=== PATIENT | female | born 1970 | race American Indian/Alaskan Native ===

== ENCOUNTER 2016-12-12 22:43 | Emergency (ER) | payer OTHER ==
[2016-12-12 23:21] VITALS: BP 152/93
== END 2016-12-12 23:30 | disposition left against medical advice (07) ==
LOC: ED 22:43
DX: R51 Headache (principal); Z53.21 Procedure and treatment not carried out due to patient leaving prior to being seen by health care provider

== ENCOUNTER 2017-02-03 10:41 | Outpatient (CLI) | payer OTHER ==
--- NOTE | 2017-02-09 11:03 | Vascular Lab Report ---
CAROTID DUPLEX STUDY: RIGHT PSVEDV CCA PROX:[id number] CCA DIST:[id number] ICA PROX:[id number] ICA MID: 8440 ICA DIST: 9046 ECA: 109 VERT: 53 19 LEFT PSVEDV CCA PROX:[id number] CCA DIST: 9334 ICA PROX:[id number] ICA MID: 5321 ICA DIST: 8138 ECA: 123 VERT: 55 21 REASON FOR EXAM: Possible TIA. COMMENTS ON THE RIGHT: Doppler frequency analysis is consistent with 16 to 49 percent diameter reduction of the internal carotid artery. Minimal amount of plaque is seen. The common carotid artery is patent. The external carotid artery is patent. The vertebral artery has antegrade flow. COMMENTS ON THE LEFT: Doppler frequency analysis is consistent with 16 to 49 percent diameter reduction of the internal carotid artery. Minimal amount of plaque is seen. The common carotid artery is patent. The external carotid artery is patent. The vertebral artery has antegrade flow. IMPRESSION: Less than 50% diameter reduction in the internal carotid arteries bilaterally. Consider repeat carotid artery duplex in 12 months.
== END 2017-02-03 10:42 | disposition home or self-care (01) ==
LOC: VAS 10:41
PROVIDERS: ATTEND Family Medicine
DX: I65.23 Occlusion and stenosis of bilateral carotid arteries (principal); R26.81 Unsteadiness on feet; R47.81 Slurred speech
CPT/HCPCS: 93880

== ENCOUNTER 2017-09-21 18:14 | Emergency (ER) | payer OTHER ==
[2017-09-21 18:43] VITALS: BP 104/82
[2017-09-21 19:32] LABS: Basophils % (Auto) 0.3 % (0.0-1.8); Eosinophils # (Auto) 0.1 K/mm3 (0.0-0.4); Eosinophils % (Auto) 0.9 % (0.0-4.3); Hematocrit 38.6 % (30.3-42.9); Lymphocytes # (Auto) 3.7 K/mm3 (1.2-5.4); Lymphocytes % (Auto) 33.3 % (13.4-35.0); Mean Corpuscular HGB Conc 34 % (30-34); Mean Corpuscular Hemoglobin 29 pg (28-32); Mean Corpuscular Volume 87 fl (79-97); Monocytes # (Auto) 0.6 K/mm3 (0.0-0.8); Monocytes % (Auto) 5.4 % (0.0-7.3); Platelet Count 223 K/mm3 (140-440); Red Blood Count 4.43 M/mm3 (3.65-5.03)
[2017-09-21 19:39] LABS: Alanine Aminotransferase 15 units/L (7-56); Albumin 4.1 g/dL (3.9-5); BUN/Creatinine Ratio 17; Blood Urea Nitrogen 10 mg/dL (7-17); Hemolysis Index 16; Lipase 29 units/L (13-60)
== END 2017-09-22 04:07 | disposition left against medical advice (07) ==
LOC: ED 18:14
DX: R11.2 Nausea with vomiting, unspecified (principal); R19.7 Diarrhea, unspecified; R07.9 Chest pain, unspecified; Z53.21 Procedure and treatment not carried out due to patient leaving prior to being seen by health care provider
CPT/HCPCS: 36415; 80053; 83690; 84484; 85025; 93005; 93010

== ENCOUNTER 2018-03-27 21:28 | Emergency (ER) | payer SELFPAY ==
[2018-03-27] MEDS ORDERED: NACL 0.9% 1000 ML 1,000 ML IV ONE (22:06)
[2018-03-27] MEDS ORDERED: ASPIRIN PO ONE (22:06)
[2018-03-27 22:31] LABS: Basophils % (Auto) 0.5 % (0.0-1.8); Eosinophils % (Auto) 0.4 % (0.0-4.3); Hematocrit 40.2 % (30.3-42.9); Hemoglobin 13.8 gm/dl (10.1-14.3); Lymphocytes # (Auto) 2.7 K/mm3 (1.2-5.4); Lymphocytes % (Auto) 33.7 % (13.4-35.0); Mean Corpuscular HGB Conc 34 % (30-34); Mean Corpuscular Hemoglobin 31 pg (28-32); Mean Corpuscular Volume 90 fl (79-97); Monocytes # (Auto) 0.6 K/mm3 (0.0-0.8); Monocytes % (Auto) 7.2 % (0.0-7.3); Platelet Count 254 K/mm3 (140-440); Red Blood Count 4.49 M/mm3 (3.65-5.03); Red Cell Distribution Width 13.2 % (13.2-15.2)
[2018-03-27 22:40] LABS: INR 0.98 (0.87-1.13)
[2018-03-27 22:41] LABS: Partial Thromboplastin Time 28.5 Sec. (24.2-36.6)
[2018-03-27 22:54] LABS: Alanine Aminotransferase 18 units/L (7-56); Albumin 3.9 g/dL (3.9-5); BUN/Creatinine Ratio 11; Blood Urea Nitrogen 8 mg/dL (7-17); Hemolysis Index 4; Lipase 30 units/L (13-60)
[2018-03-28] MEDS ORDERED: ASPIRIN ONE (00:11)
[2018-03-28] MEDS ORDERED: K-DUR PO ONE (00:47)
--- NOTE | 2018-03-28 01:36 | Emergency Department Report ---
ED Chest Pain HPI - General Chief Complaint: Chest Pain Stated Complaint: CHEST PAIN,HEADACHE,BLOOD IN STOOL Time Seen by Provider: 03/28/18 00:46 Source: patient Mode of arrival: Ambulatory Limitations: No Limitations - History of Present Illness Initial Comments: Earlier today, patient had one episode of dark red blood in her stool and when she wiped. Concerned her. So, she came to the ER for evaluation. On the way to the ER, patient developed left-sided chest pain that was nonradiating, intermittent, pleuritic, and nonexertional. Patient does not normally have chest pain. She smokes half a pack per day. Denies alcohol and drug use. No family history of ACS. Not on control. No recent trips/surgeries/ history of malignancy. -: Gradual - Related Data Home Medications Medication Instructions Recorded Confirmed Last Taken Hydrochlorothiazide 12.5 mg PO DAILY 09/27/14 08/01/16 09/27/14 Previous Rx's Medication Instructions Recorded Last Taken Type traMADol [Ultram] 50 mg PO Q6HR PRN #20 tablet 08/01/16 Unknown Rx Allergies Allergy/AdvReac Type Severity Reaction Status Date / Time lisinopril Allergy Angioedema Verified 02/12/14 07:44 Heart Score - HEART Score History: Slightly suspicious EKG: Normal Age: 45-65 Risk factors: 1-2 risk factors Troponin: < normal limit HEART Score: 2 ED Review of Systems ROS: Stated complaint: CHEST PAIN,HEADACHE,BLOOD IN STOOL Other details as noted in HPI Comment: All other systems reviewed and negative Cardiovascular: chest pain Gastrointestinal: hematochezia ED Past Medical Hx - Past Medical History Previous Medical History?: Yes Hx Hypertension: Yes Hx Congestive Heart Failure: No Hx Diabetes: No Hx Arthritis: Yes Hx Headaches / Migraines: Yes Hx Kidney Stones: Yes Hx Asthma: No Hx COPD: No Hx HIV: No Additional medical history: hyperthyroid - Surgical History Past Surgical History?: Yes Hx Cholecystectomy: Yes Additional Surgical History: tubal ligation 1993, eye surgery 1975, - Social History Smoking Status: Current Every Day Smoker Substance Use Type: None - Medications Home Medications: Home Medications Medication Instructions Recorded Confirmed Last Taken Type Hydrochlorothiazide 12.5 mg PO DAILY 09/27/14 08/01/16 09/27/14 History traMADol [Ultram] 50 mg PO Q6HR PRN #20 tablet 08/01/16 Unknown Rx ED Physical Exam - General Limitations: No Limitations General appearance: alert, in no apparent distress - Head Head exam: Present: atraumatic, normocephalic - Eye Eye exam: Present: normal appearance - ENT ENT exam: Present: mucous membranes moist - Neck Neck exam: Present: normal inspection - Respiratory Respiratory exam: Present: normal lung sounds bilaterally. Absent: respiratory distress - Cardiovascular Cardiovascular Exam: Present: regular rate, normal rhythm. Absent: systolic murmur, diastolic murmur, rubs, gallop - GI/Abdominal GI/Abdominal exam: Present: soft, normal bowel sounds. Absent: tenderness - Rectal Rectal exam: Present: normal inspection, heme (-) stool. Absent: hemorrhoids - Extremities Exam Extremities exam: Present: normal inspection - Back Exam Back exam: Present: normal inspection - Neurological Exam Neurological exam: Present: alert, oriented X3 - Psychiatric Psychiatric exam: Present: normal affect, normal mood - Skin Skin exam: Present: warm, dry, intact, normal color. Absent: rash ED Course Vital Signs 03/27/18 03/27/18 03/28/18 21:38 22:00 00:32 Temperature 98.3 F 98.3 F Pulse Rate 96 H 98 H Respiratory 18 18 Rate Blood Pressure 123/77 123/77 O2 Sat by Pulse 99 99 100 Oximetry 03/28/18 03/28/18 03/28/18 00:45 01:00 01:15 Temperature Pulse Rate 86 86 90 Respiratory 25 H 19 28 H Rate Blood Pressure 113/72 116/75 116/75 O2 Sat by Pulse 99 97 100 Oximetry 03/28/18 03/28/18 01:30 01:45 Temperature Pulse Rate 88 90 Respiratory 25 H 18 Rate Blood Pressure 131/74 131/74 O2 Sat by Pulse 100 99 Oximetry ED Medical Decision Making - Lab Data Result diagrams: 03/27/18 22:08 03/27/18 22:08 - EKG Data -: EKG Interpreted by [facility] EKG shows normal: sinus rhythm, axis, intervals, QRS complexes, ST-T waves Rate: normal - EKG Data Interpretation: no acute changes - Radiology Data Radiology results: image reviewed - Medical Decision Making 47-year-old female with past medical history of hypertension on hydrochlorothiazide presents to the ER with concerns for hematochezia and chest pain. Vital signs are stable. Patient is well-appearing. Patient had heme- negative stool on exam. External rectal exam was unremarkable. Likely hematochezia is due to internal hemorrhoids versus mucosal tear. I will start the patient on stool softeners for management. Hemoglobin is stable. Patient also endorsing chest pain. Low risk by heart score. EKG is unremarkable. Initial troponin is negative. Chest pain is improving without intervention. Patient is perc negative. If her delta troponin is negative, I have recommended to the patient that she follow-up with her family doctor for possible cardiac stress testing. The patient is comfortable with this plan. - Differential Diagnosis ACS, PE, pneumonia, pneumothorax, AAA, dissection, hemorrhoids Critical care attestation.: If time is entered above; I have spent that time in minutes in the direct care of this critically ill patient, excluding procedure time. ED Disposition Clinical Impression: Hematochezia, Chest pain, Hypokalemia Disposition: DC-01 TO HOME OR SELFCARE Is pt being admited?: No Does the pt Need Aspirin: No Condition: Stable Instructions: Chest Pain (ED), Rectal Bleeding (ED), Hypokalemia (ED) Additional Instructions: Please start a daily senna/docusate to help soften her stools for the next week. This can be purchased [id number]. Follow-up with her family doctor for reevaluation of year rectal bleeding and chest pain. Referrals: PRIMARY CARE, [Primary Care Provider] - 3-5 Days
[2018-03-28] MEDS ORDERED: TYLENOL PO ONE (01:57)
--- NOTE | 2018-03-28 02:27 | XRay Report ---
FINAL REPORT EXAM: XR CHEST 1V AP HISTORY: chest pain TECHNIQUE: A portable upright view the chest was submitted. FINDINGS: Heart size and mediastinum appear normal. The lungs are clear. The lungs are not congested. Pleural fluid is not seen. There are EKG leads overlying the chest wall. The skeletal structures do not show any acute changes. IMPRESSION: No active chest disease.
[2018-03-28 02:28] VITALS: BP 126/74
== END 2018-03-28 02:26 | disposition home or self-care (01) ==
LOC: ED 21:28
DX: K92.1 Melena (principal); E87.6 Hypokalemia; R07.89 Other chest pain; I10 Essential (primary) hypertension; F17.200 Nicotine dependence, unspecified, uncomplicated; M19.90 Unspecified osteoarthritis, unspecified site; E05.90 Thyrotoxicosis, unspecified without thyrotoxic crisis or storm; G43.909 Migraine, unspecified, not intractable, without status migrainosus; Z90.49 Acquired absence of other specified parts of digestive tract; Z98.51 Tubal ligation status; Z88.8 Allergy status to other drugs, medicaments and biological substances
CPT/HCPCS: 36415; 71045; 80053; 83690; 84484; 85025; 85610; 85730; 86850; 86900; 86901; 93005; 93010; 99284; J7030; 96360; 96361; 99283

== ENCOUNTER 2018-05-11 18:45 | Emergency (ER) | payer SELFPAY ==
[2018-05-11 19:06] VITALS: BP 122/63
== END 2018-05-11 20:17 | disposition left against medical advice (07) ==
LOC: ED 18:45
DX: M54.2 Cervicalgia (principal); Z53.21 Procedure and treatment not carried out due to patient leaving prior to being seen by health care provider
CPT/HCPCS: 93005; 93010

== ENCOUNTER 2018-10-13 15:20 | Emergency (ER) | payer SELFPAY ==
[2018-10-13 16:14] LABS: Basophils % (Auto) 0.4 % (0.0-1.8); Eosinophils % (Auto) 0.2 % (0.0-4.3); Hematocrit 36.8 % (30.3-42.9); Hemoglobin 12.5 gm/dl (10.1-14.3); Lymphocytes % (Auto) 13.9 % (13.4-35.0); Mean Corpuscular HGB Conc 34 % (30-34); Mean Corpuscular Volume 87 fl (79-97); Monocytes # (Auto) 0.3 K/mm3 (0.0-0.8); Monocytes % (Auto) 4.1 % (0.0-7.3); Platelet Count 252 K/mm3 (140-440); Red Blood Count 4.23 M/mm3 (3.65-5.03); Red Cell Distribution Width 12.9 % (13.2-15.2)
[2018-10-13 16:48] LABS: BUN/Creatinine Ratio 9; Blood Urea Nitrogen 7 mg/dL (7-17); Calcium 8.7 mg/dL (8.4-10.2); Hemolysis Index 0
--- NOTE | 2018-10-13 16:51 | Emergency Department Report ---
ED Psych HPI - General Chief Complaint: Psych Stated Complaint: CHEST PAIN/HEADACHE Time Seen by Provider: 10/13/18 16:39 Source: patient, family Mode of arrival: Wheelchair Limitations: No Limitations - History of Present Illness Initial Comments: Patient is a 48-year-old female that presents emergency room with complaints of being stressed out and suicidal ideations with a plan. Patient states that she had been under a lot of stress and decided to eat some edible marijuana. Patient states she ate the marijuana approximately 2 hours ago he began to have nausea and shortness of breath and chest pain. Patient states that she is also been having thoughts of suicide lately and her plan will be to OD on pills. Patient is complaining of a headache and blurred vision. Patient states that the chest pain as a tenderness and is nonradiating. Patient states the chest pain is in the center of her chest and is worse with palpation and movement and better with rest. Patient states she wants to end it all due to the amount of stress she is under. Associated Psychiatric Symptoms: depression, suicidal ideation, racing thoughts History of same: Yes Quality: constant Improves With: none Worsens With: none Context: recent drug abuse Associated Symptoms: headache, shortness of breath, nausea. denies: confusion, vomiting, syncope, insomnia Treatments Prior to Arrival: placed on mental he If Self Harm: admits thoughts of, has plan - Related Data Home Medications Medication Instructions Recorded Confirmed Last Taken hydroCHLOROthiazide 12.5 mg PO DAILY 09/27/14 08/01/16 09/27/14 [Hydrochlorothiazide] Previous Rx's Medication Instructions Recorded Last Taken Type traMADol [Ultram] 50 mg PO Q6HR PRN #20 tablet 08/01/16 Unknown Rx Allergies Allergy/AdvReac Type Severity Reaction Status Date / Time lisinopril Allergy Angioedema Verified 02/12/14 07:44 ED Review of Systems ROS: Stated complaint: CHEST PAIN/HEADACHE Other details as noted in HPI Constitutional: denies: chills, fever Eyes: denies: eye pain, eye discharge, vision change ENT: denies: ear pain, throat pain Respiratory: shortness of breath. denies: cough, wheezing Cardiovascular: chest pain. denies: palpitations Endocrine: no symptoms reported Gastrointestinal: nausea. denies: abdominal pain, vomiting, diarrhea, constipation, hematemesis, melena, hematochezia Genitourinary: denies: urgency, dysuria, discharge Musculoskeletal: denies: back pain, joint swelling, arthralgia Skin: denies: rash, lesions Neurological: headache. denies: weakness, paresthesias Psychiatric: denies: anxiety, depression Hematological/Lymphatic: denies: easy bleeding, easy bruising ED Past Medical Hx - Past Medical History Previous Medical History?: Yes Hx Hypertension: Yes Hx Congestive Heart Failure: No Hx Diabetes: No Hx Arthritis: Yes Hx Headaches / Migraines: Yes Hx Kidney Stones: Yes Hx Asthma: No Hx COPD: No Hx HIV: No Additional medical history: hyperthyroid - Surgical History Past Surgical History?: Yes Hx Cholecystectomy: Yes Additional Surgical History: tubal ligation 1993, eye surgery 1975, - Family History Family history: no significant - Social History Smoking Status: Never Smoker Substance Use Type: Marijuana - Medications Home Medications: Home Medications Medication Instructions Recorded Confirmed Last Taken Type hydroCHLOROthiazide 12.5 mg PO DAILY 09/27/14 08/01/16 09/27/14 History [Hydrochlorothiazide] traMADol [Ultram] 50 mg PO Q6HR PRN #20 tablet 08/01/16 Unknown Rx ED Physical Exam - General Limitations: No Limitations General appearance: alert, in no apparent distress - Head Head exam: Present: atraumatic, normocephalic - Eye Eye exam: Present: normal appearance, PERRL Pupils: Present: normal accommodation - ENT ENT exam: Present: mucous membranes moist - Neck Neck exam: Present: normal inspection - Respiratory Respiratory exam: Present: normal lung sounds bilaterally, chest wall tenderness. Absent: respiratory distress, wheezes, rales, rhonchi, stridor - Cardiovascular Cardiovascular Exam: Present: regular rate, normal rhythm. Absent: systolic murmur, diastolic murmur, rubs, gallop - GI/Abdominal GI/Abdominal exam: Present: soft, normal bowel sounds - Extremities Exam Extremities exam: Present: normal inspection - Back Exam Back exam: Present: normal inspection - Neurological Exam Neurological exam: Present: alert, oriented X3 - Psychiatric Psychiatric exam: Present: normal affect, normal mood - Skin Skin exam: Present: warm, dry, intact, normal color. Absent: rash ED Course Vital Signs 10/13/18 10/13/18 15:30 19:14 Temperature 98.7 F 98.2 F Pulse Rate 111 H 99 H Respiratory 18 18 Rate Blood Pressure 155/90 Blood Pressure 147/83 [Right] O2 Sat by Pulse 97 96 Oximetry - Reevaluation(s) Reevaluation #1: Initial evaluation done. Patient was placed on a 1013. 10/13/18 16:40 Patient is medically cleared. Patient will remain on a 1013 until accepted to appropriate psychiatric facility. Patient's chest pain appears to be secondary to costochondritis and noncardiac. Mental health consultation 10/14/18 00:53 ED Medical Decision Making - Lab Data Result diagrams: 10/13/18 15:55 10/13/18 15:55 - EKG Data -: EKG Interpreted by [facility] EKG shows normal: sinus rhythm, axis, intervals, QRS complexes, ST-T waves Rate: tachycardia - Medical Decision Making Patient is a 48-year-old female with some urgency with chest pain and suicidal ideation with plan. Patient placed on 1013. Patient's chest pain is felt to be secondary to costochondritis and noncardiac. Patient's cardiac workup negative. EKG normal. Troponin negative. Other labs unremarkable. Patient's tox positive for THC. Patient remained in the ER until accepted by appropriate psychiatric facility and on 1013. Patient is medically cleared - Differential Diagnosis si. Drug use. Drug reaction. Chest pain. Costochondritis Critical care attestation.: If time is entered above; I have spent that time in minutes in the direct care of this critically ill patient, excluding procedure time. ED Disposition Clinical Impression: Costochondritis, acute, Marijuana abuse, Suicidal ideations Chest pain Qualifiers: Chest pain type: unspecified Qualified Code(s): R07.9 - Chest pain, unspecified Disposition: DC/TX-65 PSY HOSP/PSY UNIT Is pt being admited?: No Does the pt Need Aspirin: No Condition: Stable Instructions: Chest Pain (ED), Costochondritis (ED) Referrals: PRIMARY CARE, [Primary Care Provider] - 2-3 Days Time of Disposition: 00:52
[2018-10-13 17:15] LABS: Bacteria,Urine 1+ /HPF (Negative); Bilirubin,Urine NEG (Negative); Blood,Urine MOD (Negative); Color,Urine Straw (Yellow); Mucus,Urine FEW /HPF; Protein,Urine <15 mg/dL mg/dL (Negative); Urobilinogen,Urine < 2.0 mg/dL (<2.0)
[2018-10-13 17:26] LABS: Amphetamine Screen,Urine PRESUMPTIVE NEGATIVE; Benzodiazepines Screen,Urine PRESUMPTIVE NEGATIVE; Cocaine Screen,Urine PRESUMPTIVE NEGATIVE; Methadone Screen,Urine PRESUMPTIVE NEGATIVE; Opiate Screen,Urine PRESUMPTIVE NEGATIVE
[2018-10-13 17:37] LABS: Alanine Aminotransferase 17 units/L (7-56); Albumin 4.1 g/dL (3.9-5)
[2018-10-13 17:42] LABS: Cannabinoid Screen,Urine PRESUMPTIVE POSITIVE
[2018-10-13 17:51] LABS: Bilirubin,Direct < 0.2 mg/dL (0-0.2)
--- NOTE | 2018-10-14 10:51 | Consultation ---
History of Present Illness - Reason for Consult Consult date: 10/14/18 Reason for consult: Mental Health Evaluation Requesting physician: CECILIA TIPTON III - Chief Complaint Chief complaint: "I am overwhelmed" - History of Present Psychiatric Illness 48-year-old AA female who presented to the ER for SI's with a plan. Today the patient is calm and cooperative during the assessment. She stated that she is overwhelmed with life. She stated that a close friend and a family member recently that have cause her to be more depressed. She stated that she is having family problems with her and mother that's not resolved. She stated that she have been "battling with depression" for several years with no treatment. She stated having suicidal thoughts recently, but felt like she wanted to overdose yesterday to kill herself. She confirmed that she us still suicidal with a plan to overdose. She denies HI's and AVH's. She denies a poor appetite, but acknowledged erratic sleep. She denies alcohol consumption (etoh). Medications and Allergies Allergies Allergy/AdvReac Type Severity Reaction Status Date / Time lisinopril Allergy Angioedema Verified 02/12/14 07:44 Home Medications Medication Instructions Recorded Confirmed Last Taken Type hydroCHLOROthiazide 12.5 mg PO DAILY 09/27/14 08/01/16 09/27/14 History [Hydrochlorothiazide] traMADol [Ultram] 50 mg PO Q6HR PRN 10/14/18 Unknown History Past psychiatric history - Past Medical History Past Medical History: hypertension Past Surgical History: No surgical history - past Psychiatric treatment and history psychiatric treatment history: Hx of depression per the patient. Denies a fam psy hx. Mental Status Exam - Vital signs Last Vital Signs Temp 98.3 F 10/14/18 07:25 Pulse 96 H 10/14/18 07:25 Resp 16 10/14/18 07:25 BP 107/69 10/14/18 07:25 Pulse Ox 99 10/14/18 07:25 - Exam Narrative exam: MSE: Appearance: calm, cooperative Behavior: regular eye contact Speech: regular rate and tone Mood: "depressed" withdrawn Affect: flat Thought Process: circumstantial Thought Content: denies HI's and AVH's Motor Activity: ambulatory Cognition: A/O x3 Insight: fair Judgment: poor Results Result Diagrams: 10/13/18 15:55 10/13/18 15:55 Abnormal lab results 10/13/18 10/13/18 10/13/18 Range/Units 15:55 15:55 15:55 RDW 12.9 L (13.2-15.2) % Lymph # 1.0 L (1.2-5.4) K/mm3 Seg Neutrophils % 81.4 H (40.0-70.0) % Ur Specific [place] (1.003-1.030) Salicylates < 0.3 L (2.8-20.0) mg/dL Acetaminophen < 5.0 L (10.0-30.0) ug/mL 10/13/18 Range/Units 16:35 RDW (13.2-15.2) % Lymph # (1.2-5.4) K/mm3 Seg Neutrophils % (40.0-70.0) % Ur Specific [place] 1.002 L (1.003-1.030) Salicylates (2.8-20.0) mg/dL Acetaminophen (10.0-30.0) ug/mL All other labs normal. Assessment and Plan Assessment and plan: Impression: MDD, Severe Type. Cannabis Use DO. Today the patent is calm and cooperative during the assessment. The patient endorsed SI's with a plan. DDx: R/O Bipolar DO, R/O Substance Induced Mood DO Recommendation/Plan: Continue 1013 and start Remeron 15 mg PO HS for depressio/PTSD. Discussed possible sucidality/medication induced becca with the patient reference Remeron. Dispo: The patient was referred to inpatient psy services. Staffed with Dr Dominguez.
[2018-10-14] MEDS ORDERED: IBUPROFEN PO ONE (12:27)
[2018-10-14] MEDS ORDERED: ULTRAM PO ONE (15:34)
[2018-10-14] MEDS: REMERON PO SCH (23:12)
--- NOTE | 2018-10-15 08:07 | Progress Note ---
Subjective - Reason for Consult Consult date: 10/15/18 Reason for consult: Psychiatry Follow-up - Chief Complaint Chief complaint: "I feel better" 48-year-old AA female who presented to the ER for SI's with a plan. Today the patient is calm and cooperative during the assessment. She stated that she feel better, but things are still the same at home. She stated minimizing her stress is her priority at this time. She denies SI/HI's and AVH's. She denies any side effects of her medication. Mental Status Exam - Vital signs Last Vital Signs Temp 97.7 F 10/15/18 01:54 Pulse 80 10/15/18 01:54 Resp 18 10/15/18 01:54 BP 126/73 10/15/18 01:54 Pulse Ox 97 10/15/18 01:54 - Exam Narrative exam: MSE: Appearance: calm, cooperative Behavior: regular eye contact Speech: regular rate and tone Mood: "a little better" Affect: flat Thought Process: circumstantial Thought Content: denies SI/HI's and AVH's Motor Activity: ambulatory Cognition: A/O x3 Insight: fair Judgment: variable Assessment and Plan Impression: MDD, Severe Type. Cannabis Use DO. Today the patent is calm and cooperative during the assessment. DDx: R/O Bipolar DO, R/O Substance Induced Mood DO Recommendation/Plan: Continue 1013 and Remeron 15 mg PO HS for depressio/PTSD. Discussed possible sucidality/medication induced becca with the patient reference Remeron. Dispo: The patient was referred to inpatient psy services. Will staff with Dr Dominguez.
[2018-10-15] MEDS: REMERON PO SCH (21:53)
[2018-10-16 01:38] VITALS: BP 121/67
== END 2018-10-16 04:11 ==
LOC: ED 15:20
DX: F39 Unspecified mood [affective] disorder (principal); M94.0 Chondrocostal junction syndrome [Tietze]; F12.10 Cannabis abuse, uncomplicated; R45.851 Suicidal ideations; M19.90 Unspecified osteoarthritis, unspecified site; Z87.442 Personal history of urinary calculi; Z88.8 Allergy status to other drugs, medicaments and biological substances
CPT/HCPCS: 36415; 80048; 80076; 80307; 81001; 83880; 84484; 84703; 85025; 85379; 93005; 93010; 99285; G0480; 80320

== ENCOUNTER 2019-03-26 01:14 | Emergency (ER) | payer OTHER ==
[2019-03-26 01:59] LABS: Basophils % (Auto) 0.4 % (0.0-1.8); Eosinophils # (Auto) 0.1 K/mm3 (0.0-0.4); Eosinophils % (Auto) 1.3 % (0.0-4.3); Hematocrit 37.2 % (30.3-42.9); Hemoglobin 12.5 gm/dl (10.1-14.3); Lymphocytes # (Auto) 2.6 K/mm3 (1.2-5.4); Lymphocytes % (Auto) 40.7 % (13.4-35.0); Mean Corpuscular HGB Conc 34 % (30-34); Mean Corpuscular Volume 87 fl (79-97); Monocytes # (Auto) 0.5 K/mm3 (0.0-0.8); Monocytes % (Auto) 8.3 % (0.0-7.3); Platelet Count 239 K/mm3 (140-440); Red Cell Distribution Width 13.3 % (13.2-15.2)
[2019-03-26 02:22] LABS: Alanine Aminotransferase 12 units/L (7-56); Albumin 3.9 g/dL (3.9-5); BUN/Creatinine Ratio 14; Blood Urea Nitrogen 11 mg/dL (7-17); Calcium 9.1 mg/dL (8.4-10.2); Hemolysis Index 3
--- NOTE | 2019-03-26 02:38 | XRay Report ---
CHEST 1 VIEW INDICATION: Left-sided chest pain. COMPARISON: None. FINDINGS: Support devices: None. Heart: Normal. Lungs/Pleura: No acute pulmonary or pleural findings. IMPRESSION: 1. No acute findings. Signer Name: Gordon Mccord MD Signed: 03/26/2019 2:34 AM Workstation Name: [id number]
[2019-03-26] MEDS ORDERED: TORADOL IM ONE (03:18)
--- NOTE | 2019-03-26 03:24 | Emergency Department Report ---
ED Abdominal Pain HPI - General Chief Complaint: Chest Pain Stated Complaint: ABD PAIN/DISCHARGE/CHEST PAIN Time Seen by Provider: 03/26/19 03:09 Source: patient Mode of arrival: Ambulatory Limitations: No Limitations - History of Present Illness Initial Comments: 48-year-old female with a past medical history of hypertension, hypothyroidism, previous cholecystectomy, tubal ligation, and kidney stones presents to the hospital complaints of abdominal pain and dysuria. The past 2 days. She has intermittent sharp lower abdominal pain is worse with palpation. Positive nausea with vomiting yesterday 1. After vomiting patient complained of a sore throat and left-sided chest pain. Patient is pain to one specific part of her left chest just lateral to the sternum which she described as sharp, intermittent, worse with palpation and movement. She's been "coughing a lot" but has not looked at the decorator consultant for sputum. No reports of fever reported. Patient had been out of her hydrochlorothiazide and methimazole for at least 2 months he has been intermittently taking her metoprolol for her blood pressure. Severity scale (0 -10): 6 - Related Data Home Medications Medication Instructions Recorded Confirmed Last Taken hydroCHLOROthiazide 12.5 mg PO DAILY 09/27/14 03/26/19 09/27/14 [Hydrochlorothiazide] Naproxen [Naprosyn] 500 mg PO BID 03/26/19 03/26/19 Unknown Previous Rx's Medication Instructions Recorded Last Taken Type Citalopram [Celexa] 20 mg PO QDAY #30 tablet 03/26/19 Unknown Rx Methimazole [Tapazole] 10 mg PO Q8H #90 tablet 03/26/19 Unknown Rx Metoprolol [Lopressor TAB] 25 mg PO BID #60 tablet 03/26/19 Unknown Rx Ondansetron [Zofran Odt] 4 mg PO Q8HR PRN #20 tab.rapdis 03/26/19 Unknown Rx Sulfamethoxazole/Trimethoprim 1 each PO BID #6 tablet 03/26/19 Unknown Rx [Bactrim DS TAB] hydroCHLOROthiazide [Hctz] 12.5 mg PO QDAY #30 capsule 03/26/19 Unknown Rx traMADol [Ultram 50 MG tab] 50 mg PO Q6HR PRN #14 tablet 03/26/19 Unknown Rx Allergies Allergy/AdvReac Type Severity Reaction Status Date / Time lisinopril Allergy Angioedema Verified 02/12/14 07:44 ED Review of Systems ROS: Stated complaint: ABD PAIN/DISCHARGE/CHEST PAIN Other details as noted in HPI Comment: All other systems reviewed and negative ED Past Medical Hx - Past Medical History Previous Medical History?: Yes Hx Hypertension: Yes Hx Congestive Heart Failure: No Hx Diabetes: No Hx Arthritis: Yes Hx Headaches / Migraines: Yes Hx Kidney Stones: Yes Hx Asthma: No Hx COPD: No Hx HIV: No Additional medical history: hyperthyroid - Surgical History Past Surgical History?: Yes Hx Cholecystectomy: Yes Additional Surgical History: tubal ligation 1993, eye surgery 1975, - Social History Smoking Status: Current Every Day Smoker Substance Use Type: None - Medications Home Medications: Home Medications Medication Instructions Recorded Confirmed Last Taken Type hydroCHLOROthiazide 12.5 mg PO DAILY 09/27/14 03/26/19 09/27/14 History [Hydrochlorothiazide] Citalopram [Celexa] 20 mg PO QDAY #30 tablet 03/26/19 Unknown Rx Methimazole [Tapazole] 10 mg PO Q8H #90 tablet 03/26/19 Unknown Rx Metoprolol [Lopressor TAB] 25 mg PO BID #60 tablet 03/26/19 Unknown Rx Naproxen [Naprosyn] 500 mg PO BID 03/26/19 03/26/19 Unknown History Ondansetron [Zofran Odt] 4 mg PO Q8HR PRN #20 tab.rapdis 03/26/19 Unknown Rx Sulfamethoxazole/Trimethoprim 1 each PO BID #6 tablet 03/26/19 Unknown Rx [Bactrim DS TAB] hydroCHLOROthiazide [Hctz] 12.5 mg PO QDAY #30 capsule 03/26/19 Unknown Rx traMADol [Ultram 50 MG tab] 50 mg PO Q6HR PRN #14 tablet 03/26/19 Unknown Rx ED Physical Exam - General Limitations: No Limitations - Other Other exam information: General: No limitations, patient is alert in no acute distress Head exam: Atraumatic, normocephalic Eyes exam: Normal appearance, pupils equal reactive to light, extraocular movements intact ENT: Moist mucous membrane, normal oropharynx, without exudates, erythema, or edema Neck exam: Normal inspection, full range of motion, no meningismus nontender Respiratory exam: Clear to auscultation bilateral, no wheezes, rales, crackles Cardiovascular: Normal rate and rhythm, normal heart sounds, reproducible anterior left-sided chest wall tenderness at one specific area lateral to the sternum Abdomen: Soft, nondistended, mild suprapubic tenderness, with normal bowel sounds, no rebound, or guarding Extremity: Full range of motion normal inspection no deformity, no calf tenderness or edema Back: Normal Inspection, full range of motion, no tenderness Neurologic: Alert, oriented x3, cranial nerves intact, no motor or sensory defic it Psychiatric: normal affect, normal mood Skin: Warm, dry, intact ED Course Vital Signs 03/26/19 03/26/19 03/26/19 02:35 02:46 03:00 Temperature Pulse Rate 77 74 74 Respiratory 23 21 19 Rate Blood Pressure 157/98 147/84 O2 Sat by Pulse 99 99 97 Oximetry 03/26/19 03/26/19 03:03 03:12 Temperature 98.3 F Pulse Rate Respiratory 18 Rate Blood Pressure O2 Sat by Pulse 98 Oximetry ED Medical Decision Making - Lab Data Result diagrams: 03/26/19 01:31 03/26/19 01:31 Lab Results 03/26/19 03/26/19 03/26/19 Range/Units 01:31 01:31 01:31 WBC 6.3 (4.5-11.0) K/mm3 RBC 4.30 (3.65-5.03) M/mm3 Hgb 12.5 (10.1-14.3) gm/dl Hct 37.2 (30.3-42.9) % MCV 87 (79-97) fl MCH 29 (28-32) pg MCHC 34 (30-34) % RDW 13.3 (13.2-15.2) % Plt Count 239 (140-440) K/mm3 Lymph % (Auto) 40.7 H (13.4-35.0) % [place] % (Auto) 8.3 H (0.0-7.3) % Eos % (Auto) 1.3 (0.0-4.3) % Baso % (Auto) 0.4 (0.0-1.8) % Lymph # 2.6 (1.2-5.4) K/mm3 [place] # 0.5 (0.0-0.8) K/mm3 Eos # 0.1 (0.0-0.4) K/mm3 Baso # 0.0 (0.0-0.1) K/mm3 Seg Neutrophils % 49.3 (40.0-70.0) % Seg Neutrophils # 3.1 (1.8-7.7) K/mm3 Sodium 139 (137-145) mmol/L Potassium 3.6 (3.6-5.0) mmol/L Chloride 106.1 (98-107) mmol/L Carbon Dioxide 23 (22-30) mmol/L Anion Gap 14 mmol/L BUN 11 (7-17) mg/dL Creatinine 0.8 (0.7-1.2) mg/dL Estimated GFR > 60 ml/min BUN/Creatinine Ratio 14 % Glucose 99 (65-100) mg/dL Calcium 9.1 (8.4-10.2) mg/dL Total Bilirubin 0.30 (0.1-1.2) mg/dL AST 11 (5-40) units/L ALT 12 (7-56) units/L Alkaline Phosphatase 102 (35-129) units/L Troponin T < 0.010 (0.00-0.029) ng/mL Total Protein 7.2 (6.3-8.2) g/dL Albumin 3.9 (3.9-5) g/dL Albumin/Globulin Ratio 1.2 % Lipase 35 (13-60) units/L HCG, Qual Negative (Negative) Urine Color (Yellow) Urine Turbidity (Clear) Urine pH (5.0-7.0) Ur Specific [place] (1.003-1.030) Urine Protein (Negative) mg/dL Urine Glucose (UA) (Negative) mg/dL Urine Ketones (Negative) mg/dL Urine Blood (Negative) Urine Nitrite (Negative) Urine Bilirubin (Negative) Urine Urobilinogen (<2.0) mg/dL Ur Leukocyte Esterase (Negative) Urine WBC (Auto) (0.0-6.0) /HPF Urine RBC (Auto) (0.0-6.0) /HPF U Epithel Cells (Auto) (0-13.0) /HPF Urine Mucus /HPF 03/26/19 03/26/19 Range/Units 03:29 04:11 WBC (4.5-11.0) K/mm3 RBC (3.65-5.03) M/mm3 Hgb (10.1-14.3) gm/dl Hct (30.3-42.9) % MCV (79-97) fl MCH (28-32) pg MCHC (30-34) % RDW (13.2-15.2) % Plt Count (140-440) K/mm3 Lymph % (Auto) (13.4-35.0) % [place] % (Auto) (0.0-7.3) % Eos % (Auto) (0.0-4.3) % Baso % (Auto) (0.0-1.8) % Lymph # (1.2-5.4) K/mm3 [place] # (0.0-0.8) K/mm3 Eos # (0.0-0.4) K/mm3 Baso # (0.0-0.1) K/mm3 Seg Neutrophils % (40.0-70.0) % Seg Neutrophils # (1.8-7.7) K/mm3 Sodium (137-145) mmol/L Potassium (3.6-5.0) mmol/L Chloride (98-107) mmol/L Carbon Dioxide (22-30) mmol/L Anion Gap mmol/L BUN (7-17) mg/dL Creatinine (0.7-1.2) mg/dL Estimated GFR ml/min BUN/Creatinine Ratio % Glucose (65-100) mg/dL Calcium (8.4-10.2) mg/dL Total Bilirubin (0.1-1.2) mg/dL AST (5-40) units/L ALT (7-56) units/L Alkaline Phosphatase (35-129) units/L Troponin T < 0.010 (0.00-0.029) ng/mL Total Protein (6.3-8.2) g/dL Albumin (3.9-5) g/dL Albumin/Globulin Ratio % Lipase (13-60) units/L HCG, Qual (Negative) Urine Color Yellow (Yellow) Urine Turbidity Clear (Clear) Urine pH 5.0 (5.0-7.0) Ur Specific [place] 1.021 (1.003-1.030) Urine Protein <15 mg/dl (Negative) mg/dL Urine Glucose (UA) Neg (Negative) mg/dL Urine Ketones Neg (Negative) mg/dL Urine Blood Mod (Negative) Urine Nitrite Neg (Negative) Urine Bilirubin Neg (Negative) Urine Urobilinogen < 2.0 (<2.0) mg/dL Ur Leukocyte Esterase Neg (Negative) Urine WBC (Auto) 2.0 (0.0-6.0) /HPF Urine RBC (Auto) 9.0 (0.0-6.0) /HPF U Epithel Cells (Auto) 3.0 (0-13.0) /HPF Urine Mucus Few /HPF - EKG Data -: EKG Interpreted by Me EKG shows normal: sinus rhythm, axis (qrs 44), QRS complexes (qrsd 92), ST-T waves (no stemi) Rate: normal (76) - Radiology Data Radiology results: report reviewed CHEST 1 VIEW INDICATION: Left-sided chest pain. COMPARISON: None. FINDINGS: Support devices: None. Heart: Normal. Lungs/Pleura: No acute pulmonary or pleural findings. IMPRESSION: 1. No acute findings. - Medical Decision Making ED workup unremarkable. Just minimal blood noted on UA. Patient is symptomatic and reports dysuria and therefore will be empirically for UTI with Bactrim 3 days. Patient's chest pain is atypical, reproducible, likely musculoskeletal in origin. 2 negative troponins and unremarkable EKG performed in the ED. given toradol in ed - Differential Diagnosis pneumonia, bronchitis, viral syndrome, UTI, vaginitis Critical Care Time: No Critical care attestation.: If time is entered above; I have spent that time in minutes in the direct care of this critically ill patient, excluding procedure time. ED Disposition Clinical Impression: Chest wall pain, Dysuria, Medication refill Disposition: DC-01 TO HOME OR SELFCARE Is pt being admited?: No Does the pt Need Aspirin: No Condition: Stable Instructions: Costochondritis (ED), Urinary Tract Infection in Women (ED), Abdominal Pain (ED) Additional Instructions: Take the medication as prescribed. You may also continue the Naprosyn as prescribed. Follow up with your doctor or the clinic/doctor provided. Return if symptoms worsen as indicated by your discharge instructions Prescriptions: Sulfamethoxazole/Trimethoprim [Bactrim DS TAB] 1 each PO BID #6 tablet Citalopram [Celexa] 20 mg PO QDAY #30 tablet hydroCHLOROthiazide [Hctz] 12.5 mg PO QDAY #30 capsule Metoprolol [Lopressor TAB] 25 mg PO BID #60 tablet Methimazole [Tapazole] 10 mg PO Q8H #90 tablet traMADol [Ultram 50 MG tab] 50 mg PO Q6HR PRN #14 tablet PRN Reason: Pain Ondansetron [Zofran Odt] 4 mg PO Q8HR PRN #20 tab.rapdis PRN Reason: Nausea And Vomiting Referrals: [facility] RICCIHOLDENGREEN CAMP MD CATHY [Primary Care Provider] - 3-5 Days FAIZAN NORTON MD [Staff Physician] - 3-5 Days Time of Disposition: 05:11
[2019-03-26 04:16] LABS: Bilirubin,Urine NEG (Negative); Blood,Urine MOD (Negative); Color,Urine Yellow (Yellow); Mucus,Urine FEW /HPF; Protein,Urine <15 mg/dL mg/dL (Negative); Urobilinogen,Urine < 2.0 mg/dL (<2.0)
[2019-03-26 05:25] VITALS: BP 150/79
== END 2019-03-26 05:30 | disposition home or self-care (01) ==
LOC: ED 01:14
DX: R07.89 Other chest pain (principal); R30.0 Dysuria; R10.30 Lower abdominal pain, unspecified; J02.9 Acute pharyngitis, unspecified; R11.2 Nausea with vomiting, unspecified; I10 Essential (primary) hypertension; Z76.0 Encounter for issue of repeat prescription; M19.90 Unspecified osteoarthritis, unspecified site; G43.909 Migraine, unspecified, not intractable, without status migrainosus; E05.90 Thyrotoxicosis, unspecified without thyrotoxic crisis or storm; F17.200 Nicotine dependence, unspecified, uncomplicated; Z90.49 Acquired absence of other specified parts of digestive tract; Z98.51 Tubal ligation status; Z98.890 Other specified postprocedural states; Z79.899 Other long term (current) drug therapy; Z88.8 Allergy status to other drugs, medicaments and biological substances
CPT/HCPCS: 36415; 71045; 80053; 81001; 83690; 84484; 84703; 85025; 93005; 93010; 96372; 99284; J1885

== ENCOUNTER 2019-03-30 20:44 | Emergency (ER) | payer SELFPAY ==
--- NOTE | 2019-03-30 22:14 | Event Note ---
ED Screening Note ED Screening Note: Pt states that she has heaviness in her bilateral shoulders +nausea +diaphoresis never had before PMHx HTN, hyperthyroidism states she has been taking her medications This initial assessment/diagnostic orders/clinical plan/treatment(s) is/are subject to change based on patients health status, clinical progression and re- assessment by fellow clinical providers in the ED. Further treatment and workup at subsequent clinical providers discretion. Patient/guardian urged not to elope from the ED as their condition may be serious if not clinically assessed and managed. Initial orders include: labs, EKG, CXR
--- NOTE | 2019-03-30 22:52 | XRay Report ---
CHEST 2 VIEWS INDICATION / CLINICAL INFORMATION: arm heaviness, diaphoresis. COMPARISON: Chest x-ray 03/26/2019 FINDINGS: SUPPORT DEVICES: None. HEART / MEDIASTINUM: No significant abnormality. LUNGS / PLEURA: No significant pulmonary or pleural abnormality. No pneumothorax. ADDITIONAL FINDINGS: No significant additional findings. IMPRESSION: 1. No acute findings. Signer Name: Isauro Fischer MD Signed: 03/30/2019 10:47 PM Workstation Name: [id number]
[2019-03-30 23:00] LABS: Basophils % (Auto) 0.3 % (0.0-1.8); Eosinophils # (Auto) 0.1 K/mm3 (0.0-0.4); Eosinophils % (Auto) 0.7 % (0.0-4.3); Hemoglobin 14.2 gm/dl (10.1-14.3); Lymphocytes # (Auto) 2.7 K/mm3 (1.2-5.4); Lymphocytes % (Auto) 36.8 % (13.4-35.0); Mean Corpuscular HGB Conc 34 % (30-34); Mean Corpuscular Volume 87 fl (79-97); Monocytes # (Auto) 0.5 K/mm3 (0.0-0.8); Monocytes % (Auto) 6.7 % (0.0-7.3); Platelet Count 313 K/mm3 (140-440); Red Blood Count 4.83 M/mm3 (3.65-5.03); Red Cell Distribution Width 13.4 % (13.2-15.2)
[2019-03-30 23:28] LABS: BUN/Creatinine Ratio 10; Blood Urea Nitrogen 14 mg/dL (7-17); Calcium 9.8 mg/dL (8.4-10.2); Hemolysis Index 1
[2019-03-31] MEDS ORDERED: DECADRON IM ONE (02:37)
[2019-03-31] MEDS ORDERED: NORCO 5/325 PO ONE (02:37)
--- NOTE | 2019-03-31 03:04 | Emergency Department Report ---
Upper Extremity - HPI Chief Complaint: Extremity Problem,Nontraumatic Stated Complaint: SWEATING/SHOULDER PAIN Time Seen by Provider: 03/30/19 22:12 Upper Extremity: Left Shoulder, Right Shoulder Occurred When: Today Severity: moderate Symptoms: Yes Pain with Movement, No Deformity, No Limited Range of Movement, No Numbness, No Weakness, No Swelling, No Bruising/Ecchymosis, No Laceration or Abrasion Other History: pt complains of 4/10 bilat shoulder pain with tingling x today awakened with pain no n/v no sob no dizziness no lightheadedness, ED Review of Systems ROS: Stated complaint: SWEATING/SHOULDER PAIN Other details as noted in HPI Constitutional: denies: chills, fever Eyes: denies: eye pain, eye discharge, vision change ENT: denies: ear pain, throat pain Respiratory: denies: cough, shortness of breath, wheezing Cardiovascular: denies: chest pain, palpitations Endocrine: no symptoms reported Gastrointestinal: denies: abdominal pain, nausea, vomiting, diarrhea Genitourinary: denies: urgency, dysuria, discharge Musculoskeletal: myalgia. denies: back pain, joint swelling, arthralgia Skin: denies: rash, lesions Neurological: denies: headache, weakness, paresthesias Psychiatric: anxiety. denies: depression, auditory hallucinations, visual hallucinations, homicidal thoughts, suicidal thoughts Hematological/Lymphatic: denies: easy bleeding, easy bruising ED Past Medical Hx - Past Medical History Previous Medical History?: Yes Hx Hypertension: Yes Hx Congestive Heart Failure: No Hx Diabetes: No Hx Arthritis: Yes Hx Headaches / Migraines: Yes Hx Kidney Stones: Yes Hx Asthma: No Hx COPD: No Hx HIV: No Additional medical history: hyperthyroid - Surgical History Past Surgical History?: Yes Hx Cholecystectomy: Yes Additional Surgical History: tubal ligation 1993, eye surgery 1975, - Social History Smoking Status: Current Every Day Smoker Substance Use Type: None - Medications Home Medications: Home Medications Medication Instructions Recorded Confirmed Last Taken Type hydroCHLOROthiazide 12.5 mg PO DAILY 09/27/14 03/26/19 09/27/14 History [Hydrochlorothiazide] Citalopram [Celexa] 20 mg PO QDAY #30 tablet 03/26/19 Unknown Rx Methimazole [Tapazole] 10 mg PO Q8H #90 tablet 03/26/19 Unknown Rx Metoprolol [Lopressor TAB] 25 mg PO BID #60 tablet 03/26/19 Unknown Rx Naproxen [Naprosyn] 500 mg PO BID 03/26/19 03/26/19 Unknown History Ondansetron [Zofran Odt] 4 mg PO Q8HR PRN #20 tab.rapdis 03/26/19 Unknown Rx Sulfamethoxazole/Trimethoprim 1 each PO BID #6 tablet 03/26/19 Unknown Rx [Bactrim DS TAB] hydroCHLOROthiazide [Hctz] 12.5 mg PO QDAY #30 capsule 03/26/19 Unknown Rx traMADol [Ultram 50 MG tab] 50 mg PO Q6HR PRN #14 tablet 03/26/19 Unknown Rx Acetaminophen [Arthritis Pain 650 mg PO QID PRN #30 tablet.er 03/31/19 Unknown Rx Relief] Diclofenac 1% [Diclofenac 1% 1 applicatio TP QID PRN #1 tube 03/31/19 Unknown Rx topical gel] Upper Extremity Exam - Exam General: Vital signs noted. No distress. Alert and acting appropriately. Head and Torso: No HEENT Abnormality, No Neck Tenderness, No Chest/Lungs Abnormality, No Abdominal Tenderness, No Back Tenderness Shoulder Exam: Yes Shoulder Tenderness, Yes Normal Range of Motion in Shoulder, No Clavicle Tenderness, No Shoulder Deformity, No AC Joint Tenderness Arm Exam: No Arm/Humerus Tenderness, No Arm Deformity Elbow: Yes Normal Range of Motion in Elbow, No Elbow Tenderness, No Elbow Deformity Forearm: No Forearm Tenderness, No Forearm Deformity, No Pain with Pronation, No Pain with Supination Wrist: Yes Normal ROM in Wrist, No Wrist Tenderness, No Wrist Deformity, No Snuffbox Tenderness, No Pain with Axial Thumb Compression Hand: Yes Normal ROM in Digit(s), No Hand Tenderness, No Hand Deformity, No Digit Tenderness, No Digit(s) Deformity CMS Exam: Yes Normal Distal Pulses, Yes Normal Capillary Refill, Yes Normal Distal Sensation, No Broken Skin ED Course Vital Signs 03/30/19 03/31/19 22:13 02:54 Temperature 97.8 F Pulse Rate 97 H Respiratory 18 16 Rate Blood Pressure 149/96 O2 Sat by Pulse 99 Oximetry ED Medical Decision Making - Lab Data Result diagrams: 03/30/19 22:41 03/30/19 22:41 Lab Results 03/30/19 03/30/19 03/30/19 Range/Units 22:41 22:41 22:41 WBC 7.3 (4.5-11.0) K/mm3 RBC 4.83 (3.65-5.03) M/mm3 Hgb 14.2 (10.1-14.3) gm/dl Hct 42.0 (30.3-42.9) % MCV 87 (79-97) fl MCH 29 (28-32) pg MCHC 34 (30-34) % RDW 13.4 (13.2-15.2) % Plt Count 313 (140-440) K/mm3 Lymph % (Auto) 36.8 H (13.4-35.0) % [place] % (Auto) 6.7 (0.0-7.3) % Eos % (Auto) 0.7 (0.0-4.3) % Baso % (Auto) 0.3 (0.0-1.8) % Lymph # 2.7 (1.2-5.4) K/mm3 [place] # 0.5 (0.0-0.8) K/mm3 Eos # 0.1 (0.0-0.4) K/mm3 Baso # 0.0 (0.0-0.1) K/mm3 Seg Neutrophils % 55.5 (40.0-70.0) % Seg Neutrophils # 4.1 (1.8-7.7) K/mm3 Sodium 137 (137-145) mmol/L Potassium 4.0 (3.6-5.0) mmol/L Chloride 102.0 (98-107) mmol/L Carbon Dioxide 24 (22-30) mmol/L Anion Gap 15 mmol/L BUN 14 (7-17) mg/dL Creatinine 1.4 H D (0.7-1.2) mg/dL Estimated GFR 48 ml/min BUN/Creatinine Ratio 10 % Glucose 119 H (65-100) mg/dL Calcium 9.8 (8.4-10.2) mg/dL Magnesium 2.10 (1.7-2.3) mg/dL Troponin T < 0.010 (0.00-0.029) ng/mL TSH < 0.005 L (0.270-4.200) mlU/mL - EKG Data EKG shows normal: sinus rhythm, axis, intervals, QRS complexes, ST-T waves Rate: normal - EKG Data When compared to previous EKG there are: no significant change Interpretation: normal EKG (ekg interp by ed attending no ST Elevated VT, ) - Radiology Data Radiology results: report reviewed, image reviewed Ordering Physician: TRAV VENTURA Date of Service: 03/30/19 Procedure(s): XR chest routine 2V Accession Number(s): [id number] cc: TRAV VENTURA Fluoro Time In Minutes: CHEST 2 VIEWS INDICATION / CLINICAL INFORMATION: arm heaviness, diaphoresis. COMPARISON: Chest x-ray 03/26/2019 FINDINGS: SUPPORT DEVICES: None. HEART / MEDIASTINUM: No significant abnormality. LUNGS / PLEURA: No significant pulmonary or pleural abnormality. No pneumothorax. ADDITIONAL FINDINGS: No significant additional findings. IMPRESSION: 1. No acute findings. Signer Name: Isauro Fischer MD Signed: 03/30/2019 10:47 PM Workstation Name: [id number] Transcribed By: TL Dictated By: Isauro Fischer MD Electronically Authenticated By: Isauro Fischer MD Signed Date/Time: 03/30/192246 DD/ 46 TD/TT: - Medical Decision Making this is musculoskeletal pain that is reproducible to palpation no posterior vertebral point tenderness rom intact there is no paralysis no deformity there has been no fall inury or trauma , pt is improved with medications given in ed, heart score is 1, plan, dc to home with rx for nasaids, muscle relaxants, and analgesic balm. Critical care attestation.: If time is entered above; I have spent that time in minutes in the direct care of this critically ill patient, excluding procedure time. ED Disposition Clinical Impression: Musculoskeletal pain, Muscle strain, Muscle spasms of neck Disposition: DC-01 TO HOME OR SELFCARE Is pt being admited?: No Does the pt Need Aspirin: No Condition: Stable Instructions: Muscle Strain (ED), Arthralgia (ED) Prescriptions: Acetaminophen [Arthritis Pain Relief] 650 mg PO QID PRN #30 tablet.er PRN Reason: pain Diclofenac 1% [Diclofenac 1% topical gel] 1 applicatio TP QID PRN #1 tube PRN Reason: Pain , Severe (7-10) Referrals: CHELY GABRIEL MD [Primary Care Provider] - 3-5 Days Forms: Work/School Release Form(ED) Time of Disposition: 03:15
[2019-03-31 03:30] VITALS: BP 138/80
== END 2019-03-31 03:30 | disposition home or self-care (01) ==
LOC: ED 20:44
DX: S16.1XXA Strain of muscle, fascia and tendon at neck level, initial encounter (principal); M25.511 Pain in right shoulder; M25.512 Pain in left shoulder; M79.10 Myalgia, unspecified site; I10 Essential (primary) hypertension; G43.909 Migraine, unspecified, not intractable, without status migrainosus; F17.200 Nicotine dependence, unspecified, uncomplicated; E05.90 Thyrotoxicosis, unspecified without thyrotoxic crisis or storm; Z87.442 Personal history of urinary calculi; Z98.890 Other specified postprocedural states; Z90.49 Acquired absence of other specified parts of digestive tract; Z88.5 Allergy status to narcotic agent; Z98.51 Tubal ligation status; Z79.899 Other long term (current) drug therapy; X58.XXXA Exposure to other specified factors, initial encounter; Y93.89 Activity, other specified; Y92.89 Other specified places as the place of occurrence of the external cause; Y99.8 Other external cause status
CPT/HCPCS: 36415; 71046; 80048; 83735; 84443; 84484; 85025; 93005; 93010; 96372; 99284; J1100

== ENCOUNTER 2020-09-05 10:05 | Emergency (ER) | payer SELFPAY ==
[2020-09-05] MEDS ORDERED: ASPIRIN 325 MG TAB PO ONE (10:28)
--- NOTE | 2020-09-05 10:57 | XRay Report ---
CHEST 1 VIEW 09/05/2020 10:49 AM INDICATION / CLINICAL INFORMATION: Chest Pain. COMPARISON: 03/30/2019 FINDINGS: SUPPORT DEVICES: None. HEART / MEDIASTINUM: No significant abnormality. LUNGS / PLEURA: Suboptimal inspiratory effort. Allowing for this there is no significant pulmonary pa renchymal or pleural abnormality. No pneumothorax. ADDITIONAL FINDINGS: No significant additional findings. IMPRESSION: 1. No acute findings. Signer Name: Supa Alberto MD Signed: 09/05/2020 10:53 AM Workstation Name: [id number]
[2020-09-05 12:05] LABS: Basophils % (Auto) 0.3 % (0.0-1.8); Eosinophils # (Auto) 0.1 K/mm3 (0.0-0.4); Eosinophils % (Auto) 1.2 % (0.0-4.3); Hematocrit 36.3 % (30.3-42.9); Hemoglobin 12.4 gm/dl (10.1-14.3); Lymphocytes # (Auto) 2.4 K/mm3 (1.2-5.4); Lymphocytes % (Auto) 46.5 % (13.4-35.0); Mean Corpuscular HGB Conc 34 % (30-34); Mean Corpuscular Volume 85 fl (79-97); Monocytes # (Auto) 0.4 K/mm3 (0.0-0.8); Platelet Count 242 K/mm3 (140-440); Red Blood Count 4.27 M/mm3 (3.65-5.03); Red Cell Distribution Width 13.1 % (13.2-15.2)
[2020-09-05 12:19] LABS: Blood Urea Nitrogen 10 mg/dL (7-17); Calcium 9.5 mg/dL (8.4-10.2); Hemolysis Index 12
[2020-09-05 12:30] LABS: BUN/Creatinine Ratio 17
[2020-09-05 15:53] LABS: Free T4 (Free Thyroxine) 2.81 ng/dL (0.76-1.46)
--- NOTE | 2020-09-05 18:09 | Emergency Department Report ---
ED General Adult HPI - General Chief complaint: Chest Pain Stated complaint: CHEST PAIN Time Seen by Provider: 09/05/20 13:51 Source: patient Mode of arrival: Ambulatory Limitations: No Limitations - History of Present Illness Initial comments: Patient presents to emergency department the chief complaint of chest pain that started this morning upon awakening. Patient states the chest pain has been continuous and looking the left side of her chest without radiation. Patient does endorse shortness of breath with the chest pain. Patient states that she has a history of hypertension and low functioning thyroid but has not taken medication for hypertension or thyroid disease since March. Patient denies abdominal pain, headache, irritability, lack of sleep, depression. -: Sudden Location: chest Severity scale (0 -10): 2 Quality: dull Consistency: constant Improves with: none Worsens with: none Associated Symptoms: denies other symptoms Treatments Prior to Arrival: none - Related Data Home Medications Medication Instructions Recorded Confirmed Last Taken hydroCHLOROthiazide 12.5 mg PO DAILY 09/27/14 09/05/20 09/27/14 [Hydrochlorothiazide] Previous Rx's Medication Instructions Recorded Last Taken Type Citalopram [Celexa] 20 mg PO QDAY #30 tablet 03/26/19 Unknown Rx Methimazole [Tapazole] 10 mg PO Q8H #90 tablet 03/26/19 Unknown Rx Metoprolol [Lopressor TAB] 25 mg PO BID #60 tablet 03/26/19 Unknown Rx Amlodipine Besylate [Norvasc] 5 mg PO DAILY #30 tablet 09/05/20 Unknown Rx hydroCHLOROthiazide [Hctz] 12.5 mg PO QDAY #30 capsule 09/05/20 Unknown Rx Allergies Allergy/AdvReac Type Severity Reaction Status Date / Time lisinopril Allergy Angioedema Verified 03/30/19 22:16 ED Review of Systems ROS: Stated complaint: CHEST PAIN Other details as noted in HPI Constitutional: denies: chills, fever Eyes: denies: eye pain, eye discharge, vision change ENT: denies: ear pain, throat pain Respiratory: denies: cough, shortness of breath, wheezing Cardiovascular: chest pain. denies: palpitations Endocrine: no symptoms reported Gastrointestinal: denies: abdominal pain, nausea, diarrhea Genitourinary: denies: urgency, dysuria, discharge Musculoskeletal: denies: back pain, joint swelling, arthralgia Skin: denies: rash, lesions Neurological: denies: headache, weakness, paresthesias Psychiatric: denies: anxiety, depression Hematological/Lymphatic: denies: easy bleeding, easy bruising ED Past Medical Hx - Past Medical History Previous Medical History?: Yes Hx Hypertension: Yes Hx Congestive Heart Failure: No Hx Diabetes: No Hx Arthritis: Yes Hx Headaches / Migraines: Yes Hx Kidney Stones: Yes Hx Asthma: No Hx COPD: No Hx HIV: No Additional medical history: hyperthyroid - Surgical History Past Surgical History?: Yes Hx Cholecystectomy: Yes Additional Surgical History: tubal ligation 1993, eye surgery 1975, - Social History Smoking Status: Never Smoker Substance Use Type: None - Medications Home Medications: Home Medications Medication Instructions Recorded Confirmed Last Taken Type hydroCHLOROthiazide 12.5 mg PO DAILY 09/27/14 09/05/20 09/27/14 History [Hydrochlorothiazide] Citalopram [Celexa] 20 mg PO QDAY #30 tablet 03/26/19 09/05/20 Unknown Rx Methimazole [Tapazole] 10 mg PO Q8H #90 tablet 03/26/19 09/05/20 Unknown Rx Metoprolol [Lopressor TAB] 25 mg PO BID #60 tablet 03/26/19 Unknown Rx Amlodipine Besylate [Norvasc] 5 mg PO DAILY #30 tablet 09/05/20 Unknown Rx hydroCHLOROthiazide [Hctz] 12.5 mg PO QDAY #30 capsule 09/05/20 Unknown Rx ED Physical Exam - General Limitations: No Limitations General appearance: alert, in no apparent distress - Head Head exam: Present: atraumatic, normocephalic - Eye Eye exam: Present: normal appearance, PERRL, EOMI - ENT ENT exam: Present: mucous membranes moist - Neck Neck exam: Present: normal inspection - Respiratory Respiratory exam: Present: normal lung sounds bilaterally. Absent: respiratory distress - Cardiovascular Cardiovascular Exam: Present: regular rate, normal rhythm. Absent: systolic murmur, diastolic murmur, rubs, gallop - GI/Abdominal GI/Abdominal exam: Present: soft, normal bowel sounds. Absent: distended, tenderness - Extremities Exam Extremities exam: Present: normal inspection - Back Exam Back exam: Present: normal inspection - Neurological Exam Neurological exam: Present: alert, oriented X3, CN II-XII intact. Absent: motor sensory deficit - Psychiatric Psychiatric exam: Present: normal affect, normal mood - Skin Skin exam: Present: warm, dry, intact, normal color. Absent: rash ED Course Vital Signs 09/05/20 09/05/20 09/05/20 10:29 13:41 13:44 Temperature 97.9 F Pulse Rate 86 Respiratory 20 18 Rate Blood Pressure 158/94 O2 Sat by Pulse 99 100 99 Oximetry 09/05/20 09/05/20 14:00 15:00 Temperature Pulse Rate 93 H 90 Respiratory 20 19 Rate Blood Pressure 154/86 141/79 O2 Sat by Pulse 98 100 Oximetry ED Medical Decision Making - Lab Data Result diagrams: 09/05/20 11:36 09/05/20 11:36 Lab Results 09/05/20 09/05/20 09/05/20 Range/Units 11:36 11:36 14:21 WBC 5.2 (4.5-11.0) K/mm3 RBC 4.27 (3.65-5.03) M/mm3 Hgb 12.4 (10.1-14.3) gm/dl Hct 36.3 (30.3-42.9) % MCV 85 (79-97) fl MCH 29 (28-32) pg MCHC 34 (30-34) % RDW 13.1 L (13.2-15.2) % Plt Count 242 (140-440) K/mm3 Lymph % (Auto) 46.5 H (13.4-35.0) % Wise % (Auto) 8.0 H (0.0-7.3) % Eos % (Auto) 1.2 (0.0-4.3) % Baso % (Auto) 0.3 (0.0-1.8) % Lymph # (Auto) 2.4 (1.2-5.4) K/mm3 Wise # (Auto) 0.4 (0.0-0.8) K/mm3 Eos # (Auto) 0.1 (0.0-0.4) K/mm3 Baso # (Auto) 0.0 (0.0-0.1) K/mm3 Seg Neutrophils % 44.0 (40.0-70.0) % Seg Neutrophils # 2.3 (1.8-7.7) K/mm3 D-Dimer (0-234) ng/mlDDU Sodium 137 (137-145) mmol/L Potassium 4.1 (3.6-5.0) mmol/L Chloride 103.0 (98-107) mmol/L Carbon Dioxide 29 (22-30) mmol/L Anion Gap 9 mmol/L BUN 10 (7-17) mg/dL Creatinine 0.6 (0.6-1.2) mg/dL Estimated GFR > 60 ml/min BUN/Creatinine Ratio 17 % Glucose 90 (65-100) mg/dL Calcium 9.5 (8.4-10.2) mg/dL Troponin T < 0.010 < 0.010 (0.00-0.029) ng/mL TSH (0.270-4.200) mlU/mL Free T4 (0.76-1.46) ng/dL 09/05/20 09/05/20 09/05/20 Range/Units 15:12 15:12 16:46 WBC (4.5-11.0) K/mm3 RBC (3.65-5.03) M/mm3 Hgb (10.1-14.3) gm/dl Hct (30.3-42.9) % MCV (79-97) fl MCH (28-32) pg MCHC (30-34) % RDW (13.2-15.2) % Plt Count (140-440) K/mm3 Lymph % (Auto) (13.4-35.0) % Wise % (Auto) (0.0-7.3) % Eos % (Auto) (0.0-4.3) % Baso % (Auto) (0.0-1.8) % Lymph # (Auto) (1.2-5.4) K/mm3 Wise # (Auto) (0.0-0.8) K/mm3 Eos # (Auto) (0.0-0.4) K/mm3 Baso # (Auto) (0.0-0.1) K/mm3 Seg Neutrophils % (40.0-70.0) % Seg Neutrophils # (1.8-7.7) K/mm3 D-Dimer < 135.00 (0-234) ng/mlDDU Sodium (137-145) mmol/L Potassium (3.6-5.0) mmol/L Chloride (98-107) mmol/L Carbon Dioxide (22-30) mmol/L Anion Gap mmol/L BUN (7-17) mg/dL Creatinine (0.6-1.2) mg/dL Estimated GFR ml/min BUN/Creatinine Ratio % Glucose (65-100) mg/dL Calcium (8.4-10.2) mg/dL Troponin T < 0.010 (0.00-0.029) ng/mL TSH < 0.005 L (0.270-4.200) mlU/mL Free T4 2.81 H (0.76-1.46) ng/dL - EKG Data -: EKG Interpreted by Me EKG shows normal: sinus rhythm Rate: normal - Radiology Data Radiology results: report reviewed - Medical Decision Making Discussed results with patient Also discussed with patient the need to follow-up with primary care for further evaluation of her thyroid study results. Initially the patient told me that she took medication because she had a low functioning thyroid but today her TSH is low and her free T4 is elevated. With these results I discussed with the patient that this is more concerning for hyperactive thyroid and not hypoactive thyroid so at this time we would not be prescribing levothyroxine and she should follow-up as discussed. Critical care attestation.: If time is entered above; I have spent that time in minutes in the direct care of this critically ill patient, excluding procedure time. ED Disposition Clinical Impression: Nonspecific chest pain, Hypertension, Elevated serum free T4 level Disposition: - TO HOME OR SELFCARE Is pt being admited?: No Does the pt Need Aspirin: No Condition: Stable Instructions: Chest Pain (ED), Hypertension (ED), Nonspecific Chest Pain, Adult, Hypertension, Adult, Hyperthyroidism Additional Instructions: return if worse Please follow-up as discussed with provided resources. This is important due to your thyroid levels and slightly elevated although you suggested in the past you have had low thyroid function and took medication for. At this time will be not prescribing levothyroxine until your thyroid has been further evaluated. Please return if there is rapid heart rate, irritability and lack of sleep, weight loss. Referrals: PRIMARY CARE,MD [Primary Care Provider] - 3-5 Days [facility] [Provider Group] - 3-5 Days [facility] [Provider Group] - 3-5 Days [facility] [Outside] - 3-5 Days [facility] [Provider Group] - 3-5 Days [facility] [Provider Group] - 3-5 Days Time of Disposition: 18:07
[2020-09-05 18:21] VITALS: BP 148/72
== END 2020-09-05 18:21 | disposition home or self-care (01) ==
LOC: ED 10:05
DX: R07.89 Other chest pain (principal); I10 Essential (primary) hypertension; R94.6 Abnormal results of thyroid function studies; M19.90 Unspecified osteoarthritis, unspecified site; G43.909 Migraine, unspecified, not intractable, without status migrainosus; Z90.49 Acquired absence of other specified parts of digestive tract; Z98.51 Tubal ligation status; Z79.899 Other long term (current) drug therapy; Z88.8 Allergy status to other drugs, medicaments and biological substances
CPT/HCPCS: 36415; 71045; 80048; 84439; 84443; 84484; 85025; 85379; 93005

== ENCOUNTER 2021-01-26 18:21 | Emergency (ER) | payer SELFPAY ==
--- NOTE | 2021-01-26 18:46 | Event Note ---
ED Screening Note ED Screening Note: Patient is a 50-year-old female presents emergency room complaints of left-sided chest pain that began yesterday She describes the pain as a pressure She denies any radiation of the pain She states she has associated nausea and palpitations She denies any fever, cough, vomiting, diarrhea, shortness of breath, leg swelling Past medical history of hypertension, hypothyroidism, arthritis, migraines, kidney stones She states that she has been out some of her medications for 1 month due to loss of insurance This initial assessment/diagnostic orders/clinical plan/treatment(s) is/are subject to change based on patients health status, clinical progression and re- assessment by fellow clinical providers in the ED. Further treatment and workup at subsequent clinical providers discretion. Patient/guardian urged not to elope from the ED as their condition may be serious if not clinically assessed and managed. Initial orders include: Chest pain protocol
[2021-01-26 19:20] LABS: Basophils % (Auto) 0.3 % (0.0-1.8); Eosinophils # (Auto) 0.1 K/mm3 (0.0-0.4); Eosinophils % (Auto) 1.6 % (0.0-4.3); Hematocrit 37.2 % (30.3-42.9); Hemoglobin 12.6 gm/dl (10.1-14.3); Lymphocytes # (Auto) 3.1 K/mm3 (1.2-5.4); Lymphocytes % (Auto) 46.8 % (13.4-35.0); Mean Corpuscular HGB Conc 34 % (30-34); Mean Corpuscular Volume 86 fl (79-97); Monocytes # (Auto) 0.6 K/mm3 (0.0-0.8); Monocytes % (Auto) 8.5 % (0.0-7.3); Platelet Count 250 K/mm3 (140-440); Red Cell Distribution Width 13.1 % (13.2-15.2)
[2021-01-26 19:27] LABS: Alanine Aminotransferase 14 units/L (7-56); Albumin 3.7 g/dL (3.9-5); Blood Urea Nitrogen 16 mg/dL (7-17); Calcium 8.6 mg/dL (8.4-10.2); Hemolysis Index 7
--- NOTE | 2021-01-26 19:31 | XRay Report ---
CHEST 2 VIEWS INDICATION / CLINICAL INFORMATION: Chest Pain. COMPARISON: 09/05/20. FINDINGS: SUPPORT DEVICES: None. HEART / MEDIASTINUM: The heart size and pulmonary vasculature are normal. The aorta is normal in sandie aimee. LUNGS / PLEURA: No significant pulmonary or pleural abnormality. No pneumothorax. ADDITIONAL FINDINGS: The gallbladder is surgically absent. IMPRESSION: No acute abnormality or significant change. Signer Name: Supa Pacheco MD Signed: 01/26/2021 7:27 PM Workstation Name: [id number]
[2021-01-26 19:51] LABS: BUN/Creatinine Ratio 23
--- NOTE | 2021-01-27 06:39 | Emergency Department Report ---
ED Chest Pain HPI - General Chief Complaint: Chest Pain Stated Complaint: CHEST PAIN Time Seen by Provider: 01/26/21 18:44 Source: patient Mode of arrival: Ambulatory Limitations: No Limitations - History of Present Illness Initial Comments: 50-year-old female, history of hypertension, hypothyroidism, presents to ED with chest pain x2 days. Patient reports onset of pain 2 days ago on Mother's Day. Patient describes it as a fluttering pain that radiates into her left arm. Pain is intermittent. She reports nausea, denies any associated vomiting, d iaphoresis, shortness of breath, leg pain or swelling. Patient denies any tobacco or drug use. She denies any family history of heart disease. Patient also reports a separate pain in her left jaw that is related to a tooth. Patient states she has been having a toothache on off and on for "a while" but she lost her insurance and has been unable to visit the dentist. Patient states this tooth pain started long before the chest pain. MD Complaint: chest pain -: days(s) (2) Onset: during rest Pain Location: left chest Pain Radiation: LUE Severity: moderate Severity scale (0 -10): 8 Quality: other (Fluttering pain) Consistency: intermittent, now resolved Improves With: nothing Worsens With: nothing re: nausea. denies: vomting, diaphoresis, dyspnea Other Symptoms: palpitations. denies: cough, fever, leg swelling - Related Data Home Medications Medication Instructions Recorded Confirmed Last Taken hydroCHLOROthiazide 12.5 mg PO DAILY 09/27/14 09/05/20 09/27/14 [Hydrochlorothiazide] Previous Rx's Medication Instructions Recorded Last Taken Type Citalopram [Celexa] 20 mg PO QDAY #30 tablet 03/26/19 Unknown Rx Methimazole [Tapazole] 10 mg PO Q8H #90 tablet 03/26/19 Unknown Rx Metoprolol [Lopressor TAB] 25 mg PO BID #60 tablet 03/26/19 Unknown Rx Amlodipine Besylate [Norvasc] 5 mg PO DAILY #30 tablet 09/05/20 Unknown Rx hydroCHLOROthiazide [Hctz] 12.5 mg PO QDAY #30 capsule 09/05/20 Unknown Rx Allergies Allergy/AdvReac Type Severity Reaction Status Date / Time lisinopril Allergy Angioedema Verified 03/30/19 22:16 Heart Score - HEART Score History: Slightly suspicious EKG: Normal Age: 45-65 Risk factors: > 3 risk factors or hx of atherosclerotic disease Troponin: < normal limit HEART Score: 3 - EKG Read Time Time EKG Completed: 18:31 EKG Read Time: 18:35 ED Review of Systems ROS: Stated complaint: CHEST PAIN Other details as noted in HPI Comment: All other systems reviewed and negative Constitutional: denies: chills, fever Respiratory: denies: cough, shortness of breath Cardiovascular: chest pain, palpitations Gastrointestinal: nausea. denies: vomiting Musculoskeletal: other (Denies leg pain or swelling) ED Past Medical Hx - Past Medical History Previous Medical History?: Yes Hx Hypertension: Yes Hx Congestive Heart Failure: No Hx Diabetes: No Hx Arthritis: Yes Hx Headaches / Migraines: Yes Hx Kidney Stones: Yes Hx Asthma: No Hx COPD: No Hx HIV: No Additional medical history: hyperthyroid - Surgical History Hx Cholecystectomy: Yes Additional Surgical History: tubal ligation 1993, eye surgery 1975, - Social History Smoking Status: Never Smoker Substance Use Type: None - Medications Home Medications: Home Medications Medication Instructions Recorded Confirmed Last Taken Type hydroCHLOROthiazide 12.5 mg PO DAILY 09/27/14 09/05/20 09/27/14 History [Hydrochlorothiazide] Citalopram [Celexa] 20 mg PO QDAY #30 tablet 03/26/19 09/05/20 Unknown Rx Methimazole [Tapazole] 10 mg PO Q8H #90 tablet 03/26/19 09/05/20 Unknown Rx Metoprolol [Lopressor TAB] 25 mg PO BID #60 tablet 03/26/19 Unknown Rx Amlodipine Besylate [Norvasc] 5 mg PO DAILY #30 tablet 09/05/20 Unknown Rx hydroCHLOROthiazide [Hctz] 12.5 mg PO QDAY #30 capsule 09/05/20 Unknown Rx ED Physical Exam - General Limitations: No Limitations General appearance: alert, in no apparent distress - Head Head exam: Present: atraumatic, normocephalic - Eye Eye exam: Present: normal appearance, EOMI - ENT ENT exam: Present: mucous membranes moist, other (Tooth #19 tender to percussion, appears to be somewhat decayed ) - Neck Neck exam: Present: normal inspection - Respiratory Respiratory exam: Present: normal lung sounds bilaterally. Absent: respiratory distress - Cardiovascular Cardiovascular Exam: Present: regular rate, normal rhythm - GI/Abdominal GI/Abdominal exam: Present: soft. Absent: distended, tenderness - Extremities Exam Extremities exam: Present: normal inspection. Absent: pedal edema, calf tenderness - Neurological Exam Neurological exam: Present: alert, oriented X3 - Psychiatric Psychiatric exam: Present: normal affect, normal mood - Skin Skin exam: Present: warm, dry, intact, normal color ED Course Vital Signs 01/26/21 01/27/21 01/27/21 18:39 03:59 05:38 Temperature 98.6 F Pulse Rate 81 87 80 Respiratory 18 18 19 Rate Blood Pressure 162/88 Blood Pressure 141/84 162/85 [Right] O2 Sat by Pulse 99 99 100 Oximetry 01/27/21 01/27/21 01/27/21 06:45 06:53 07:06 Temperature 97.8 F Pulse Rate 81 Respiratory 18 18 18 Rate Blood Pressure Blood Pressure 146/99 [Right] O2 Sat by Pulse 99 Oximetry ED Medical Decision Making - Lab Data Result diagrams: 01/26/21 18:45 01/26/21 18:45 - EKG Data -: EKG Interpreted by Nc EKG shows normal: sinus rhythm, axis, intervals, QRS complexes, ST-T waves Rate: normal - EKG Data Interpretation: no acute changes - Radiology Data Radiology results: report reviewed, image reviewed - Medical Decision Making 50-year-old female, history of hypertension, hypothyroidism, presents to ED with chest pain x2 days. Patient reports onset of pain 2 days ago on Mother's Day. Patient describes it as a fluttering pain that radiates into her left arm. Pain is intermittent. She reports nausea, denies any associated vomiting, frank phoresis, shortness of breath, leg pain or swelling. Patient denies any tobacco or drug use. She denies any family history of heart disease. Patient also reports a separate pain in her left jaw that is related to a tooth. Patient states she has been having a toothache on off and on for "a while" but she lost her insurance and has been unable to visit the dentist. Patient states this tooth pain started long before the chest pain. Patient is currently chest pain-free. EKG is normal. Troponin is negative x2. Chest x-ray is normal. Heart score of 3. Patient will be discharged at this time. Outpatient follow-up advised, return precautions given. - Differential Diagnosis ACS, pneumonia, atypical chest pain Critical care attestation.: If time is entered above; I have spent that time in minutes in the direct care of this critically ill patient, excluding procedure time. ED Disposition Clinical Impression: Chest pain, Toothache Disposition: TO HOME OR SELFCARE Is pt being admited?: No Condition: Stable Instructions: Nonspecific Chest Pain, Adult Referrals: PRIMARY CARE, [Primary Care Provider] - 3-5 Days [facility] [Outside] - 3-5 Days [facility] [Provider Group] - 3-5 Days [facility] [Provider Group] - 3-5 Days Forms: Work/School Release Form(ED) Time of Disposition: 06:48
[2021-01-27] MEDS ORDERED: IBUPROFEN 800 MG TAB PO ONE (06:47)
[2021-01-27 06:48] VITALS: BP 146/99
--- NOTE | 2021-01-29 11:40 | Electrocardiograph Report ---
[facility] Test Date: 2021-01-26 Test Time: 18:31:44 Pat Name: FÁTIMA BENAVIDEZ Department: Room: Gender: F Collections Clerk: : 1970 Requested By: RAFIQ HATHAWAY Order Number: [id number] Reading MD: Melvi Ram Measurements Intervals [place] Rate: 82 P: 54 DE: 130 QRS: 63 QRSD: 87 T: 27 QT: 372 QTc: 431 Interpretive Statements Sinus arrhythmia No previous ECG available for comparison Electronically Signed On 01-29-2021 11:40:36 EDT by Melvi Ram
== END 2021-01-27 07:08 | disposition home or self-care (01) ==
LOC: ED 18:21
DX: R07.89 Other chest pain (principal); K08.89 Other specified disorders of teeth and supporting structures; I10 Essential (primary) hypertension; M19.90 Unspecified osteoarthritis, unspecified site; G43.909 Migraine, unspecified, not intractable, without status migrainosus; Z98.51 Tubal ligation status; Z79.899 Other long term (current) drug therapy
CPT/HCPCS: 36415; 71046; 80053; 82550; 83735; 84443; 84484; 85025; 93005

== ENCOUNTER 2021-09-11 11:37 | Emergency (ER) | payer SELFPAY ==
[2021-09-11] MEDS ORDERED: ACETAMINOPHEN 325 MG TAB PO ONE (12:26)
[2021-09-11] MEDS ORDERED: PANTOPRAZOLE 40 MG TAB PO ONE (12:26)
[2021-09-11] MEDS ORDERED: IBUPROFEN 400 MG TAB PO ONE (12:26)
--- NOTE | 2021-09-11 12:27 | Emergency Department Report ---
ED General Adult HPI - General Chief complaint: Chest Pain Stated complaint: Chest wall pain PUI?: No Time Seen by Provider: 09/11/21 11:57 Source: patient, RN notes reviewed, old records reviewed Mode of arrival: Ambulatory Limitations: No Limitations - History of Present Illness Initial comments: The patient was evaluated in the emergency department for symptoms described in the history of present illness. He/she was evaluated in the context of the global COVID-19 pandemic, which necessitated consideration that the patient might be at risk for infection with the virus that causes COVID-19. Institutional protocols and algorithms that pertain to the evaluation of patients at risk for COVID-19 are in a state of rapid change based on information released by regulatory bodies including the CDC and federal and state organizations. These policies and algorithms were followed during the patient's care in the emergency department. Please note that these policies, procedures and recommendations changed on a rapid basis. During the history and physical examination, I am chaperoned by Cori Villagran The patient is a pleasant 51-year-old female, who is left-hand dominant. She does a lot of heavy lifting for work. The patient presents to the ER today with a complaint of intermittent left-sided chest wall pain since Tuesday. She denies vomiting, diaphoresis and exertional shortness of breath. She also describes left deltoid, left posterior trapezius pain. However, she tells me the pain in her left chest does not radiate to her back, arms or neck. No travel, surgery, immobilization, leg pain, oral contraceptive use, and there is no personal/family history of DVT/PE/ACS/CAD that she is aware of. Her pain increases with palpation and range of motion. It decreases with rest. Denies fever, sore throat, vomiting, lower abdominal pain, urinary symptoms, extremity weakness/numbness -: Gradual, days(s) Location: chest Severity scale (0 -10): 6 Quality: aching Consistency: intermittent Improves with: rest Worsens with: movement - Related Data Home Medications Medication Instructions Recorded Confirmed Last Taken hydroCHLOROthiazide 12.5 mg PO DAILY 09/27/14 09/05/20 09/27/14 [Hydrochlorothiazide] Previous Rx's Medication Instructions Recorded Last Taken Type Citalopram [Celexa] 20 mg PO QDAY #30 tablet 03/26/19 Unknown Rx Metoprolol [Lopressor TAB] 25 mg PO BID #60 tablet 03/26/19 Unknown Rx methIMAzole [Tapazole] 10 mg PO Q8H #90 tablet 03/26/19 Unknown Rx Amlodipine Besylate [Norvasc] 5 mg PO DAILY #30 tablet 09/05/20 Unknown Rx hydroCHLOROthiazide [Hctz] 12.5 mg PO QDAY #30 capsule 09/05/20 Unknown Rx Acetaminophen [Non-Aspirin Extra 500 mg PO Q6HR PRN #30 tablet 09/11/21 Unknown Rx Strength] Ibuprofen [Motrin] 40 mg PO Q8H PRN #30 tablet 09/11/21 Unknown Rx Pantoprazole [Protonix TAB] 20 mg PO QDAY #30 tablet. 09/11/21 Unknown Rx Allergies Allergy/AdvReac Type Severity Reaction Status Date / Time lisinopril Allergy Angioedema Verified 09/11/21 11:43 ED Review of Systems ROS: Stated complaint: CHEST PAIN Other details as noted in HPI Constitutional: denies: diaphoresis, fever Eyes: denies: eye discharge ENT: denies: epistaxis Respiratory: denies: cough Cardiovascular: chest pain Gastrointestinal: denies: abdominal pain, vomiting Musculoskeletal: myalgia Neurological: denies: weakness Hematological/Lymphatic: denies: easy bleeding ED Past Medical Hx - Past Medical History Hx Hypertension: Yes Hx Congestive Heart Failure: No Hx Diabetes: No Hx Arthritis: Yes Hx Headaches / Migraines: Yes Hx Kidney Stones: Yes Hx Asthma: No Hx COPD: No Hx HIV: No Additional medical history: hyperthyroid - Surgical History Hx Cholecystectomy: Yes Additional Surgical History: tubal ligation 1993, eye surgery 1975, - Social History Smoking Status: Never Smoker Substance Use Type: None - Medications Home Medications: Home Medications Medication Instructions Recorded Confirmed Last Taken Type hydroCHLOROthiazide 12.5 mg PO DAILY 09/27/14 09/05/20 09/27/14 History [Hydrochlorothiazide] Citalopram [Celexa] 20 mg PO QDAY #30 tablet 03/26/19 09/05/20 Unknown Rx Metoprolol [Lopressor TAB] 25 mg PO BID #60 tablet 03/26/19 Unknown Rx methIMAzole [Tapazole] 10 mg PO Q8H #90 tablet 03/26/19 09/05/20 Unknown Rx Amlodipine Besylate [Norvasc] 5 mg PO DAILY #30 tablet 09/05/20 Unknown Rx hydroCHLOROthiazide [Hctz] 12.5 mg PO QDAY #30 capsule 09/05/20 Unknown Rx Acetaminophen [Non-Aspirin Extra 500 mg PO Q6HR PRN #30 tablet 09/11/21 Unknown Rx Strength] Ibuprofen [Motrin] 40 mg PO Q8H PRN #30 tablet 09/11/21 Unknown Rx Pantoprazole [Protonix TAB] 20 mg PO QDAY #30 tablet. 09/11/21 Unknown Rx ED Physical Exam - General Limitations: No Limitations General appearance: alert, in no apparent distress - Head Head exam: Present: atraumatic, normocephalic - Eye Eye exam: Present: normal appearance, EOMI - ENT ENT exam: Present: normal exam, normal orophraynx, mucous membranes moist, normal external ear exam - Neck Neck exam: Present: normal inspection, full ROM. Absent: tenderness, meningismus - Respiratory Respiratory exam: Present: normal lung sounds bilaterally, chest wall tenderness (Reproducible chest wall tenderness. Chaperoned by Tana Villagran), other (Patient provided verbal consent for chest and breast examination. Chaperoned by Cori Villagran). Absent: respiratory distress, wheezes, rales, rhonchi, stridor - Cardiovascular Cardiovascular Exam: Present: regular rate, normal rhythm, normal heart sounds. Absent: bradycardia, tachycardia, irregular rhythm, systolic murmur, diastolic murmur, rubs, gallop - GI/Abdominal GI/Abdominal exam: Present: soft. Absent: distended, tenderness, guarding, rebound, rigid, pulsatile mass - Extremities Exam Extremities exam: Present: normal inspection, full ROM, pedal edema (1+ edema in the bilateral lower extremities. Patient reports that this is chronic.), other (2+ pulses noted in the bilateral upper and lower extremities. There is no palpable cord. negative Homans sign. Muscular compartments are soft. The pelvis is stable.). Absent: calf tenderness - Back Exam Back exam: Present: normal inspection, full ROM. Absent: tenderness, CVA tenderness (R), CVA tenderness (L), paraspinal tenderness, vertebral tenderness - Neurological Exam Neurological exam: Present: alert, oriented X3, normal gait, other (No facial droop. Tongue midline. Extraocular movements intact bilaterally. Facial sensation intact to light touch in V1, V2, V3 distribution bilaterally. 5 and a 5 strength in 4 extremities. Sensation intact to light touch in 4 extre mities.). Absent: motor sensory deficit - Psychiatric Psychiatric exam: Present: normal affect, normal mood - Skin Skin exam: Present: warm, dry, intact, normal color. Absent: rash ED Course Vital Signs 09/11/21 09/11/21 11:45 17:01 Temperature 97.8 F Pulse Rate 100 H 84 Respiratory 20 15 Rate Blood Pressure 157/84 132/80 [Right] O2 Sat by Pulse 100 99 Oximetry - Reevaluation(s) Reevaluation #1: 09/11/21 14:18 Differential diagnosis, including but not limited to: Costochondritis, GERD, gastritis, hiatal hernia, pneumonia, coronary artery disease Assessment and plan: 51-year-old female who is not currently tachycardic, tachypneic or hypoxic, who denies DVT and pulmonary embolism risk factors, who i s low risk by Wells criteria for pulmonary embolism, EKG unchanged x2 and unchanged from prior, troponin negative x1, symptoms intermittent for 3 to 4 days. Patient has equal pulses in the upper and lower extremities, no pulsatile abdominal mass, and an unremarkable x-ray of the chest, therefore, aortic disease is very unlikely. Patient at low risk for major adverse cardiac event as per heart score. Has a component of reproducible chest wall pain on my examination We will treat the patient's symptoms. Repeat EKG and troponin at hour 3. Patient at low risk for major adverse cardiac event. Should be suitable to follow-up with outpatient cardiology, presuming no change in her diagnostic studies. I discussed this with the patient. She has articulated understanding. Reassess after repeat troponin, repeat EKG have resulted 09/11/21 16:36 EKG is unchanged x2. Troponin is negative x2. Repeat heart rate 73 bpm. Resting comfortably in stretcher, and in no acute distress. Suitable to follow- up with an outpatient primary care doctor or safety engineer for her chest wall pain ED Medical Decision Making - Lab Data Result diagrams: 09/11/21 13:18 09/11/21 13:18 - EKG Data 09/11/21 14:17 EKG #1 is interpreted at 11: 49 Sinus rhythm, rate 81 bpm. Normal axis, normal P wave axis, atrial enlargement, and left ventricular hypertrophy. Abnormal EKG. Not a STEMI. This appears to be unchanged when compared to prior EKG from January 2021 - Radiology Data Radiology results: pending, report reviewed, image reviewed CHEST 2 VIEWS INDICATION / CLINICAL INFORMATION: Chest Pain. COMPARISON: Chest x-ray 01/26/2021 FINDINGS: SUPPORT DEVICES: None. HEART / MEDIASTINUM: No significant abnormality. LUNGS / PLEURA: No significant pulmonary or pleural ab normality. No pneumothorax. ADDITIONAL FINDINGS: No significant additional findings. IMPRESSION: 1. No acute findings. Signer Name: Isauro Fischer MD Signed: 09/11/2021 12:04 PM Workstation Name: [id number] Critical care attestation.: If time is entered above; I have spent that time in minutes in the direct care of this critically ill patient, excluding procedure time. ED Disposition Clinical Impression: Chest wall pain Disposition: HOME / SELF CARE / HOMELESS Is pt being admited?: No Does the pt Need Aspirin: No Condition: Good Instructions: Costochondritis Additional Instructions: Please continue current outpatient medications. Rest, avoid heavy lifting and strenuous physical activities. Take the prescribed medications as needed and directed. Follow-up with a heart doctor/safety engineer within the 3 to 5 days. Please return to the emergency room right away with new pain, worsened pain, migration of pain, projectile vomiting, change in mental status, confusion, inability tolerate liquid feeds, new, worsened or different symptoms not present on the initial emergency room evaluation Minimize/avoid consumption of heavy and spicy foods, tobacco, alcohol and smoke products. When taking ibuprofen for pain, please make certain to take it with food. Prescriptions: Ibuprofen [Motrin] 40 mg PO Q8H PRN #30 tablet PRN Reason: Pain Acetaminophen [Non-Aspirin Extra Strength] 500 mg PO Q6HR PRN #30 tablet PRN Reason: Pain , Severe (7-10) Pantoprazole [Protonix TAB] 20 mg PO QDAY #30 tablet. Referrals: [facility] [Provider Group] - 3-5 Days [facility] [Provider Group] - 3-5 Days Forms: Work/School Release Form(ED) Heart Score - HEART Score History: Slightly suspicious EKG: Non-specific Age: 45-65 Risk factors: 1-2 risk factors Troponin: < normal limit HEART Score: 3 - EKG Read Time Time EKG Completed: 11:49 EKG Read Time: 11:49 - Critical Actions Critical Actions: 0-3 pts:0.9-1.7%risk of adverse cardiac event.Candidate for discharge
--- NOTE | 2021-09-11 13:08 | XRay Report ---
CHEST 2 VIEWS INDICATION / CLINICAL INFORMATION: Chest Pain. COMPARISON: Chest x-ray 01/26/2021 FINDINGS: SUPPORT DEVICES: None. HEART / MEDIASTINUM: No significant abnormality. LUNGS / PLEURA: No significant pulmonary or pleural abnormality. No pneumothorax. ADDITIONAL FINDINGS: No significant additional findings. IMPRESSION: 1. No acute findings. Signer Name: Isauro Fischer MD Signed: 09/11/2021 1:04 PM Workstation Name: [id number]
[2021-09-11 13:56] LABS: Basophils % (Auto) 0.2 % (0.0-1.8); Eosinophils % (Auto) 0.7 % (0.0-4.3); Hematocrit 38.7 % (30.3-42.9); Hemoglobin 12.5 gm/dl (10.1-14.3); Lymphocytes # (Auto) 2.3 K/mm3 (1.2-5.4); Lymphocytes % (Auto) 45.3 % (13.4-35.0); Mean Corpuscular HGB Conc 32 % (30-34); Mean Corpuscular Volume 87 fl (79-97); Monocytes # (Auto) 0.4 K/mm3 (0.0-0.8); Monocytes % (Auto) 6.8 % (0.0-7.3); Platelet Count 246 K/mm3 (140-440); Red Blood Count 4.47 M/mm3 (3.65-5.03); Red Cell Distribution Width 12.9 % (13.2-15.2)
[2021-09-11 14:06] LABS: INR 0.95 (0.87-1.13)
[2021-09-11 14:53] LABS: Blood Urea Nitrogen 14 mg/dL (7-17); Calcium 9.5 mg/dL (8.4-10.2); Hemolysis Index 8
[2021-09-11 15:00] LABS: BUN/Creatinine Ratio 21
[2021-09-11 17:03] VITALS: BP 132/80
--- NOTE | 2021-09-14 10:40 | Electrocardiograph Report ---
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
--- NOTE | 2021-09-14 10:42 | Electrocardiograph Report ---
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
== END 2021-09-11 17:03 | disposition home or self-care (01) ==
LOC: ED 11:37
DX: R07.89 Other chest pain (principal); I10 Essential (primary) hypertension; G43.909 Migraine, unspecified, not intractable, without status migrainosus; M19.90 Unspecified osteoarthritis, unspecified site; Z90.49 Acquired absence of other specified parts of digestive tract; Z87.442 Personal history of urinary calculi; Z98.51 Tubal ligation status; Z88.8 Allergy status to other drugs, medicaments and biological substances; Z79.899 Other long term (current) drug therapy
CPT/HCPCS: 36415; 71046; 80048; 84484; 85025; 85610; 93005; 99284